=== PATIENT | male | born 1975 | race Caucasian/White ===

== ENCOUNTER 2024-12-20 10:34 | Emergency (ER) | payer SELFPAY ==
[2024-12-20] VITALS (7 sets, daily range): BP systolic 119–140; BP diastolic 77–103; BMI 22.9
--- NOTE | 2024-12-20 11:24 | ED.GENMED ---
History of Present Illness
General
Chief Complaint: Throat Problem
Source: patient
Time Seen by Provider: 12/20/24 10:42
History of Present Illness
History of Present Illness:
49-year-old male with no significant past medical history presents to the ER from [facility] urgent care for evaluation of suspected right-sided peritonsillar abscess. Patient started feeling a sore throat on evening with
progressive pain since, patient notes painful swallowing and notes intermittent spitting due to the pain. He does note lesser intake to solids but not liquids. He denies any known fevers but does admit to chills. He has not been on any
antibiotics. Last dose of medication was 1 tablet of Aleve at 6 AM this morning but without any relief. Patient denies any other symptoms other than some right-sided otalgia. Denies any coughing, chest pain, shortness of breath, abdominal pain,
nausea, vomiting, rashes, head or neck pain. Denies any history of similar.
Past History
Past History
ED Past Medical History: None
ED Past Surgical History: None
Social History
Tobacco: Non-smoker
Alcohol: None
Drug: None
Living: with family
Review of Systems
Review of Systems
All Other Systems: ROS reviewed and negative except as documented in HPI and ROS
Phy Exam
Physical Exam
Physical Exam:
GENERAL: Alert , in no apparent distress
EYE: conjunctiva clear
NECK: Supple, no significant adenopathy.
ENT: Right-sided peritonsillar edema, uvula slightly deviated towards the left. Tolerating secretions, no stridor or trismus., mmm. TMs clear bilateral
CARDIAC: Regular rate and rhythm
LUNGS: Clear breath sounds bilaterally, no acute respiratory distress, no wheezes/rales/rhonchi
NEUROLOGICAL: Alert and oriented
SKIN: Warm and dry, skin intact.
MUSCULOSKELETAL: well perfused.
PSYCH: Normal and appropriate interaction.
Scores
Heart Failure Risk
Heart Failure Risk Score: Not Applicable
Heart Score for Chest Pain Patients
STEMI patient?: Not applicable
Withdrawal Assessment of Alcohol
Withdrawal Assessment Completed?: Not applicable
Course
Orders/Labs/Results
Orders:
Orders
12/20/24 10:55
Dexamethasone Sod Phosphate [Decadron] 10 mg IV NOW STA
Ketorolac [Toradol] 30 mg IV NOW STA
Viscous Lidocaine 2% [Xylocaine Viscous Cup] 15 ml PO NOW STA
12/20/24 11:33
COVID-19 Antigen Urgent
Source: Nasal Swab
Complete Blood Count/With Diff Urgent
Comprehensive Metabolic Panel Urgent
Monotest Urgent
Rapid Strep Group A Urgent
ENIO Source: Throat/Pharynx
Specimen Description:
Date Specimen was Collected: 12/20/24
Time Specimen was Collected: 11:25
12/20/24 12:57
Wound Culture [Wound/Abscess/Other Culture] Routine
ENIO Source: Abscess
Specimen Description:
Date Specimen was Collected: 12/20/24
Time Specimen was Collected: 12:49
Comment: Right peritonsillar abscess
12/20/24 14:00
Clindamycin 600 mg/50 ml [Cleocin] 600 mg in 50 ml IV NOW
Abnormal Lab Results
12/20/24
11:33
RBC 4.56 L 10^6/uL
(4.70-6.10)
Absolute Neuts (auto) 8.2 H 10^3/uL
(1.4-6.5)
Absolute Lymphs (auto) 1.1 L 10^3/uL
(1.2-3.4)
Absolute Monos (auto) 1.0 H 10^3/uL
(0.1-0.6)
Neutrophils % 79.0 H %
(42.2-75.2)
Lymphocytes % 10.5 L %
(20.5-51.1)
Monocytes % 9.7 H %
(1.7-9.3)
Chloride 108 H mmol/L
(98-107)
12/20/24 11:33
12/20/24 11:33
Vital Signs
Initial and Last Documented VS:
Initial Vital Signs
Temp Pulse Resp BP Pulse Ox
97.7 F 69 18 136/103 100
12/20/24 10:37 12/20/24 10:37 12/20/24 10:37 12/20/24 10:37 12/20/24 10:37
Last Documented Vital Signs
Temp Pulse Resp BP Pulse Ox
98.6 F 73 18 126/78 100
12/20/24 11:40 12/20/24 11:40 12/20/24 11:40 12/20/24 11:40 12/20/24 11:40
MDM/Problems Addressed
Differential Diagnosis Includes:
Peritonsillar abscess
Retropharyngeal abscess
Mononucleosis
Strep throat
Pharyngitis
Otitis media/otitis externa
Hayfever
MDM/Problems Addressed:
49-year-old male presenting to the ER for evaluation of suspected right-sided peritonsillar abscess after being seen at urgent care earlier this morning. Patient still with pain despite 1 dose of Aleve at 6 AM. Will treat here with Toradol,
Decadron and viscous lidocaine. Labs including monotest ordered. CT ordered. Will discuss with the ENT as I do suspect peritonsillar abscess/retropharyngeal abscess based off of evaluation.
*Pulse Oximetry
SaO2: 100
Oxygen Mode of Delivery: Room air
Patient hypoxic: no
*Critical Care Note
Total Time (30-74mins, 75-104mins- exclusive of procedures): Not Applicable
Patient Management
Discussion with other providers: Clinical Documentation Specialist
Escalation/DeEscalation of care consider admission/obs:
ENT came to the bedside to evaluate the patient and performed incision and drainage. Culture sent. Will treat here with a dose of IV clindamycin and sent home with prescription for this as well as a Medrol Dosepak. Patient to follow-up as
outpatient as needed. Return precautions maria d. Stable for discharge home. CT scan discontinued as patient already had incision and drainage performed and getting imaging would not change patient's disposition.
ED Attending Note
-
Portions of this chart may have been created with voice recognition software.� Occasional wrong word or��sound alike� substitutions may have occurred due to the inherent limitations of voice recognition software.
Discharge Plan
Departure
Patient Disposition: Home (Routine Discharge)
Date of Disposition: 12/20/24
Time of Disposition: 12:45
Patient with high blood pressure during this ER visit?: Yes
Discharge Problem:
Peritonsillar abscess
Instructions: Peritonsillar Abscess, Adult (DC)
Prescriptions:
New
clindamycin HCl [Cleocin HCl] 300 mg capsule
600 mg PO BID 10 Days Qty: 40 0RF
methylprednisolone [Medrol ([place])] 4 mg tablets,dose pack
4 mg PO DIRECTED Qty: 21 0RF
Referrals:
Theron Shah MD [Active, Otology]
NONE,* [Family Provider, Internal Medicine]
Interventions
Interventions:
*Risk Screen - Suicide Last Done: 12/20/24 10:37
*General Assessment Last Done: 12/20/24 10:37
*Neglect/Abuse Screening Last Done: 12/20/24 10:37
*ED- Fall Risk Assessment Last Done: 12/20/24 11:40
*ED COVID-19 Vaccine History Last Done: 12/20/24 11:40
ED-EENT Assessment Last Done: 12/20/24 11:40
ED- Pulmonary Assessment Last Done: 12/20/24 11:40
Discharge Date and Time
Print Language: CENTRAL AFRICAN
[2024-12-20 11:52] LABS: Hematocrit 40.9 % (39.0-52.0); Hemoglobin 14.0 g/dL (13.0-18.0); Mean Corp Hgb Conc. 34.2 g/dL (33.0-37.0); Mean Corpuscular Volume 89.7 fL (80.0-94.0); Nucleated Red Blood Cells % 0 % (-); Platelet Count 155 10^3/uL (130-400); Red Cell Dist. Width 12.7 % (11.5-14.5)
[2024-12-20] MEDS: XYLOCAINE VISCOUS CUP 15 ML PO (11:56)
[2024-12-20] MEDS: TORADOL 30 MG IV (11:56)
[2024-12-20] MEDS: DECADRON 10 MG IV (11:56)
[2024-12-20 12:07] LABS: COVID-19 Antigen Negative (Negative)
[2024-12-20 12:18] LABS: ALT (SGPT) 16 U/L (0-50); AST (SGOT) 23 U/L (17-59); Albumin 4.5 g/dl (3.5-5.0); Alkaline Phosphatase 54 U/L (38-126); Blood Urea Nitrogen 19 mg/dl (9-20); Calcium 8.8 mg/dl (8.4-10.2); Carbon Dioxide 25 mmol/L (22-30); Chloride 108 mmol/L (98-107); Estimated Creatinine Clearance > 125 ml/min; Glucose 96 mg/dl (70-99); Potassium 4.4 mmol/L (3.5-5.1); Sodium 140 mmol/L (135-145); Total Protein 7.0 g/dl (6.3-8.2); eGFR > 60.00
--- NOTE | 2024-12-20 12:34 | EDRN ---
ENT currently at the pts bedside
--- NOTE | 2024-12-20 12:40 | CON.MD ---
Consultation - Medical
-
dictated.
R peritonsillar abscess, aspirated.
He does not need a CT scan.
I sent a cx.
Please give him IV clinda, possibly hydration, and he can go home on po clinda 600 TID, probably doesn't need narcotic analgesics. continue gargling. he will call us if worsens.
[2024-12-20] MEDS: CLEOCIN 50 IV (14:09)
== END 2024-12-20 14:52 | disposition home or self-care (01) ==
LOC: EMR 10:34
PROVIDERS: Physician Assistant Medical; EMERGENCY PHYSICIAN Student in an Organized Health Care Education/Training Program
DX: J36 Peritonsillar abscess (principal)
CPT/HCPCS: 99283; 42700; 96365; 96375; 80053; 85025; 86308; 87070; 87077; 87147; 87205; 87811; 87880